=== PATIENT | female | born 1960 | race Caucasian/White ===

== ENCOUNTER 2018-08-31 08:49 | Emergency (ER) | payer OTHER ==
[~2018-08-31] VITALS: Ht 160 cm; Wt 93.1 kg
[~2018-08-31 08:49] MED LIST: ENOX40SY4 SQ; FERR325T18 PO; HYDR-3237 PO; HYDR1TAB12 PO; METH5TAB82 PO; NICO-486 TD; PANT40TA3 PO
[2018-08-31] MEDS ORDERED: DICL75TA3 PO (09:38)
[2018-08-31] MEDS ORDERED: PARI1CAP3 PO (09:38)
--- NOTE | 2018-08-31 10:03 | NUR ---
pt upright on gurney awake & comfortable, responds approp to staff, NAD, comfort measures provided, call light within reach.
[2018-08-31 10:10] LABS: BASOPHILS # (AUTO) 0.03 x10^3/uL (0-0.1); BASOPHILS % (AUTO) 1 % (0-1); EOSINOPHILS % (AUTO) 0 % (1-7); LYMPHOCYTES # (AUTO) 0.43 x10^3/uL (1-3.4); LYMPHOCYTES % (AUTO) 9 % (22-44); MD NO; MEAN CORPUSCULAR HEMOGLOBIN 32.6 pg (27.0-34.8); MEAN CORPUSCULAR HGB CONC 34.7 g/dL (32.4-35.8); MEAN CORPUSCULAR VOLUME 93.9 fL (80-100); MEAN PLATELET VOLUME 8.4 fL (7.4-10.4); MONOCYTES # (AUTO) 0.69 x10^3/uL (0.2-0.8); MONOCYTES % (AUTO) 15 % (2-9); NEUTROPHILS # (AUTO) 3.61 x10^3/uL (1.8-6.8); NEUTROPHILS % (AUTO) 76 % (42-75); PLATELET COUNT 150 x10^3/uL (130-400); RED BLOOD COUNT 4.99 x10^6/uL (3.82-5.3); RED CELL DISTRIBUTION WIDTH 12.8 % (9.6-15.2)
[2018-08-31 10:22] LABS: ALANINE AMINOTRANSFERASE 25 U/L (12-78); ALBUMIN 3.7 g/dL (3.4-5.0); ANION GAP 4 mmol/L (5-15); CALCIUM 9.5 mg/dL (8.5-10.1); CHLORIDE 108 mmol/L (98-107); CREATININE 0.91 mg/dL (0.55-1.02); INTERNATIONAL NORMALIZED RATIO 1.01 (0.93-1.1); PROTHROMBIN TIME 10.7 Seconds (9.6-11.5)
[2018-08-31 10:26] LABS: ALKALINE PHOSPHATASE 70 U/L (45-117); BILIRUBIN,TOTAL 0.8 mg/dL (0.2-1.0); TOTAL PROTEIN 7.2 g/dL (6.4-8.2); TROPONIN I < 0.015 ng/mL (0.000-0.045)
--- NOTE | 2018-08-31 11:02 | NUR ---
pt remains upright on [place] awake & comfortable, able to doze off at times, SpO2 desat while dozing- improvement with suppl O2 applied- ERP aware, responds approp to staff, NAD, comfort measures provided, call light within reach.
--- NOTE | 2018-08-31 11:58 | NUR ---
REPORT GIVEN TO JUVE
[2018-08-31 12:12] VITALS: BP 146/95
--- NOTE | 2018-08-31 12:13 | NUR ---
Patient/Caregiver given discharge instructions and they have confirmed that they understand the instructions. Patient ambulatory with steady gait.
== END 2018-08-31 12:15 | disposition home or self-care (01) ==
LOC: ED 10:01
DX: R10.12 Left upper quadrant pain (principal); R07.2 Precordial pain; I10 Essential (primary) hypertension; F17.200 Nicotine dependence, unspecified, uncomplicated; Z86.39 Personal history of other endocrine, nutritional and metabolic disease
CPT/HCPCS: 36415; 71045; 80053; 83690; 84484; 85025; 85379; 85610; 85730; 93005; 99284